=== PATIENT | female | born 1980 | race African-American/Black ===

== ENCOUNTER 2017-09-09 03:45 | Emergency (ER) | payer SELFPAY ==
[~2017-09-09] VITALS: Ht 177.8 cm; Wt 81.6 kg
[2017-09-09 03:53] VITALS: Ht 177.8 cm; Wt 81.6 kg
[2017-09-09 06:48] LABS: PLATELET COUNT 388 x10^3mcL (130-400)
[2017-09-09 06:51] LABS: RED CELL DISTRIBUTION WIDTH 15.7 % (11.5-14.5)
[2017-09-09 06:54] LABS: CALCIUM 8.7 mg/dL (8.5-10.1); CARBON DIOXIDE 26.9 mmol/L (21-32); CHLORIDE SERUM 97 mmol/L (98-107); CREATININE SERUM 0.6 mg/dL (0.6-1.0); GFR1 > 60 mL/min; GLUCOSE SERUM 344 mg/dL (74-106); POTASSIUM SERUM 3.5 mmol/L (3.5-5.1); SODIUM SERUM 134 mmol/L (136-145)
[2017-09-09 08:38] LABS: AMPHETAMINE QUAL UR POSITIVE (NEG <=1000)
[2017-09-09 09:06] VITALS: BP 115/65
== END 2017-09-09 09:06 | disposition home or self-care (01) ==
LOC: ED 03:45
PROVIDERS: Emergency Medicine
DX: F15.10 Other stimulant abuse, uncomplicated (principal); E11.9 Type 2 diabetes mellitus without complications; Z88.0 Allergy status to penicillin
CPT/HCPCS: J1885